=== PATIENT | female | born 2000 | race Caucasian/White ===

== ENCOUNTER 2018-01-29 18:00 | Inpatient (IN) | payer BC ==
[2018-01-29] MEDS ORDERED: DEXTROSE 5%-LACTATED RINGERS 1,000 ML IV SCH (18:15)
[2018-01-29] MEDS ORDERED: TUBERCULIN PPD 5 TU/0.1ML SYRINGE (IN PATIENT USE ONLY) ID ONE (18:45)
[2018-01-29 18:53] VITALS: BMI 27.4
[2018-01-29 19:46] LABS: BASO % 0.3 % (0-2.0); EOS % 0.5 % (0-4.5); HEMATOCRIT 36.3 % (32.4-45.2); HEMOGLOBIN 12.5 GM/dL (10.7-15.3); LYMPH % 20.6 % (8-40); MCHC 34.4 g/dl (32.0-36.0); MEAN CELL VOLUME 90.1 fl (80-96); MEAN PLT VOLUME 9.9 fl (7.5-11.1); MONO % 6.5 % (3.8-10.2); NEUT % 72.1 % (42.8-82.8); PLATELET COUNT 196 K/MM3 (134-434); RBC 4.03 M/mm3 (3.60-5.2); RDW 13.1 % (11.6-15.6); WHITE BLOOD COUNT 10.5 K/mm3 (4.0-10.0)
[2018-01-29 19:59] LABS: INR 0.88 (0.82-1.09)
[2018-01-29 20:01] LABS: ACTIVATED PTT 26.2 SECONDS (26.9-34.4)
[2018-01-29 20:16] LABS: ANION GAP 7 (8-16); BLOOD UREA NITROGEN 13 mg/dL (7-18); CALCIUM 8.9 mg/dL (8.5-10.1); CHLORIDE 107 mmol/L (98-107); CO2 25 mmol/L (21-32); CREATININE 0.5 mg/dL (0.55-1.02); GLUCOSE,RANDOM 95 mg/dL (74-106); POTASSIUM 4.2 mmol/L (3.5-5.1); SODIUM 139 mmol/L (136-145)
[2018-01-29] MEDS ORDERED: PROMETHAZINE HCL 25 MG/1 ML VIAL ONE (21:59)
[2018-01-29] MEDS ORDERED: BUTORPHANOL TARTRATE 1 MG/ML VIAL ONE ×2 (21:59)
--- NOTE | 2018-01-29 22:02 | HP ---
Past Medical History - Primary Care Physician PCP:: Pascual Singleton - Admission Chief Complaint: 37.6 weeks, PROM History of Present Illness: 17 yo f g 1 p0 edc by sono 02/13/18 c/o rom since 5 pm tody, clear, no pain, no fever , no bleeding, cx 2 cm 80 vx -2 mr, clear , nitrazine positive, fhr cat 1 , irregular mild contraction History Source: Patient Limitations to Obtaining History: No Limitations - Past Medical History DOULA: Yes: Syncope (ct scan negative) Renal/: Yes: UTI (txed during ) ...: 1 ...Para: 0 ...LMP: 05/11/17 ... Weeks Gestation by Dates: 37.4 ...EDC by Dates: 02/15/18 ...EDC by Sono: 02/13/18 Heme/Onc: Yes: Anemia Psych: Yes: Anxiety, Depression - Past Surgical History Hx Myomectomy: No Hx Transabdominal Cerclage: No - Smoking History Smoking history: Former smoker Have you smoked in the past 12 months: Yes Aproximately how many cigarettes per day: 3 If you are a former smoker, when did you quit?: Before - Alcohol/Substance Use Hx Alcohol Use: No Home Medications - Allergies Allergies/Adverse Reactions: Allergies Allergy/AdvReac Type Severity Reaction Status Date / Time No Known Allergies Allergy Verified 01/05/18 21:29 - Home Medications Home Medications: Ambulatory Orders Ferrous Sulfate 1 tab PO TID 11/27/17 Vit Calc,Iron,Folic [ Vitamins] 1 each PO DAILY 11/27/17 Ascorbic Acid [Vitamin C -] 250 mg PO DAILY 01/05/18 Cholecalciferol (Vitamin D3) [Vitamin D3 -] 400 unit PO DAILY 01/05/18 Review of Systems - Review of Systems Constitutional: reports: No Symptoms Eyes: reports: No Symptoms HENT: reports: No Symptoms Neck: reports: No Symptoms Cardiovascular: reports: No Symptoms Respiratory: reports: No Symptoms Gastrointestinal: reports: No Symptoms Genitourinary: reports: No Symptoms Breasts: reports: No Symptoms Reported Musculoskeletal: reports: No Symptoms Integumentary: reports: No Symptoms Neurological: reports: No Symptoms Endocrine: reports: No Symptoms Hematology/Lymphatic: reports: No Symptoms Psychiatric: reports: No Symptoms Physical Exam - Maternity Vital Signs: Vital Signs Temperature 98.2 F 01/29/18 19:46 Pulse Rate 86 01/29/18 21:00 Respiratory Rate 20 01/29/18 21:00 Blood Pressure 145/73 01/29/18 21:00 O2 Sat by Pulse Oximetry (%) Constitutional: Yes: Well Nourished, No Distress, Calm Eyes: Yes: WNL, Conjunctiva Clear, EOM Intact HENT: Yes: WNL, Atraumatic, Normocephalic Neck: Yes: WNL, Supple, Trachea Midline Cardiovascular: Yes: WNL, Regular Rate and Rhythm Breast(s): Yes: WNL - Abdominal Exam/OB Fundal Height: 40 Number of Fetuses: Single Presentation: Vertex Contractions: Yes Regularity: Irregular Monitor Mode: External Heart Rate Location: [facility] Category: I Accelerations: Uniform Decelerations: None - Vaginal Exam/OB Vaginal Bleediing: No Speculum Exam: Yes Dilatation (cm): 3 Effacement (%): 80 Amniotic Membrane Status: Ruptured Amniotic Fluid: Yes: Clear Presentation: Vertex/Position Station: -2 - Physical Exam Musculoskeletal: Yes: WNL Extremities: Yes: WNL Edema: Yes Edema: LLE: Trace, RLE: Trace Deep Tendon Reflex Grade: Normal +2 ...Motor Strength: WNL Psychiatric: Yes: WNL - Labs Lab Results: CBC, BMP 01/29/18 18:45 01/29/18 18:45 Hemorrhage Risk Assessment - Risk Factors Medium Risk Factors: Yes: None High Risk Factors: Yes: None Risk Score: 1 Risk Level: Medium Risk Problem List - Problems (1) with 37 weeks completed gestation Code(s): Z3A.37 - 37 WEEKS GESTATION OF (2) Premature rupture of membranes Code(s): O42.90 - ANGEL ROM, 7TH0 BETW RUPT & ONST LABR, UNSP WEEKS OF GEST Qualifiers: PROM onset of labor timing: onset of labor within 24 hours of rupture (3) Anxiety Code(s): F41.9 - ANXIETY DISORDER, UNSPECIFIED Assessment/Plan admit, GBS negative , heart monitoring , pain management , if contraction not regular may benefit from low dose pitocin
[2018-01-29] MEDS ORDERED: BUTORPHANOL TARTRATE 1 MG/ML VIAL IVPUSH ONE (22:15)
[2018-01-29] MEDS ORDERED: PROMETHAZINE HCL 25 MG/1 ML VIAL IVPUSH ONE (22:15)
[2018-01-30] MEDS ORDERED: OXYTOCIN 30 UNITS in 0.9% NS 30 UNIT/500 ML INFUS.BAG IVPB SCH (01:30)
[2018-01-30] MEDS ORDERED: OXYTOCIN 10 UNITS/ML VIAL ONE (01:42)
[2018-01-30] MEDS ORDERED: OXYTOCIN 20 UNITS in 0.9% NS 20 UNIT/1,000 ML INFUS.BAG IV ONE ×2 (01:43→05:54)
[2018-01-30] MEDS ORDERED: FENTANYL/BUPIVACAINE/NS/PF - PCEA - 50 ML DISP.SYRIN EP ONE (02:14)
[2018-01-30] MEDS ORDERED: NALOXONE HCL 0.4 MG/ML VIAL IVPUSH PRN (02:20)
[2018-01-30] MEDS ORDERED: FENTANYL/BUPIVACAINE/NS/PF - PCEA - 50 ML DISP.SYRIN EP SCH (02:30)
[2018-01-30] MEDS ORDERED: ELECTROLYTE-148 SOLN 1,000 ML IV SCH (02:30)
[2018-01-30] MEDS ORDERED: LIDOCAINE HCL 1% PRESERVATIVE FREE - 30ML VIAL ONE (06:17)
[2018-01-30] MEDS ORDERED: ACETAMINOPHEN 325 MG TABLET (FP) ONE (06:33)
[2018-01-30] MEDS ORDERED: WITCH HAZEL 50% (TUCKS) 40 PAD/JAR PAD TP PRN (06:35)
[2018-01-30] MEDS ORDERED: BISACODYL 10 MG SUPP.RECT RC PRN (06:35)
[2018-01-30] MEDS ORDERED: METHYLERGONOVINE MALEATE 0.2 MG/1 ML AMP IM PRN (06:35)
[2018-01-30] MEDS ORDERED: BENZOCAINE 28 GM HEMORRHOIDAL OINTMENT TP PRN (06:35)
[2018-01-30] MEDS ORDERED: BENZOCAINE 20% 57 GM BOTTLE TP PRN (06:35)
--- NOTE | 2018-01-30 06:35 | PN ---
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
[2018-01-30] MEDS ORDERED: D5W-LR W/ 20 UNITS OXYTOCIN 20 UNIT/1,000 ML INFUS.BAG IV SCH (06:45)
[2018-01-30] MEDS: FERROUS SO4 325 MG TABLET (FP) PO SCH ×2 (08:20→16:32)
[2018-01-30] MEDS ORDERED: TUBERCULIN PPD 5 TU/0.1ML SYRINGE (IN PATIENT USE ONLY) ID ONE (09:00)
[2018-01-30] MEDS: PRENATAL VITAMINS W/ FOLIC ACID TABLET (FP) PO SCH (09:48)
[2018-01-30] MEDS ORDERED: IBUPROFEN 600 MG TABLET (FP) PO ONE (09:55)
[2018-01-30] MEDS: IBUPROFEN 600 MG TABLET (FP) PO PRN ×2 (09:55→17:01)
[2018-01-31] MEDS: IBUPROFEN 600 MG TABLET (FP) PO PRN ×4 (00:16→21:32)
[2018-01-31] MEDS: ACETAMINOPHEN 325 MG TABLET (FP) PO PRN ×4 (00:17→21:32)
[2018-01-31 08:16] LABS: BASO % 0.4 % (0-2.0); EOS % 0.9 % (0-4.5); HEMATOCRIT 34.9 % (32.4-45.2); HEMOGLOBIN 11.7 GM/dL (10.7-15.3); LYMPH % 32.1 % (8-40); MCH 30.6 pg (25.7-33.7); MCHC 33.4 g/dl (32.0-36.0); MEAN CELL VOLUME 91.4 fl (80-96); MEAN PLT VOLUME 9.4 fl (7.5-11.1); NEUT % 58.6 % (42.8-82.8); PLATELET COUNT 149 K/MM3 (134-434); RBC 3.82 M/mm3 (3.60-5.2); RDW 13.5 % (11.6-15.6); WHITE BLOOD COUNT 11.5 K/mm3 (4.0-10.0)
[2018-01-31] MEDS: FERROUS SO4 325 MG TABLET (FP) PO SCH ×2 (08:26→17:04)
[2018-01-31] MEDS: PRENATAL VITAMINS W/ FOLIC ACID TABLET (FP) PO SCH (09:28)
--- NOTE | 2018-01-31 09:44 | PN ---
Post Progress Note - Subjective Subjective: Patient without acute complaints. Reports tolerating oral intake without nausea or vomiting. Ambulating without dizziness. Denies fevers or chills. Pain well controlled with oral pain medication. without difficulty. Passing flatus. Post Day: 1 Type of Delivery: Vital Signs: Vital Signs Temperature 97.8 F 01/31/18 06:00 Pulse Rate 87 01/31/18 06:00 Respiratory Rate 20 01/31/18 06:00 Blood Pressure 127/50 01/31/18 06:00 O2 Sat by Pulse Oximetry (%) 100 01/30/18 08:00 Uterus: Yes: Fundus Firm, Fundus below umbilicus Abdomen/GI: Yes: Abdomen soft, Tender, Passing flatus, Tolerating PO. No: Abdominal Distention Lochia: Yes: Serosa Lochia, amount: Moderate Extremities: Yes: Calves non-tender. No: Edema Activity: Ambulating - Labs Labs: CBC WBC 11.5 K/mm3 (4.0-10.0) H 01/31/18 07:22 RBC 3.82 M/mm3 (3.60-5.2) 01/31/18 07:22 Hgb 11.7 GM/dL (10.7-15.3) 01/31/18 07:22 Hct 34.9 % (32.4-45.2) 01/31/18 07:22 MCV 91.4 fl (80-96) 01/31/18 07:22 MCH 30.6 pg (25.7-33.7) 01/31/18 07:22 MCHC 33.4 g/dl (32.0-36.0) 01/31/18 07:22 RDW 13.5 % (11.6-15.6) 01/31/18 07:22 Plt Count 149 K/MM3 (134-434) D 01/31/18 07:22 MPV 9.4 fl (7.5-11.1) 01/31/18 07:22 Neutrophils % 58.6 % (42.8-82.8) 01/31/18 07:22 Lymphocytes % 32.1 % (8-40) D 01/31/18 07:22 Monocytes % 8.0 % (3.8-10.2) 01/31/18 07:22 Eosinophils % 0.9 % (0-4.5) 01/31/18 07:22 Basophils % 0.4 % (0-2.0) 01/31/18 07:22 Assessment/Plan 17 yo PPD #1 s/p , afebrile, vital signs stable, doing well 1. Continue routine care. 2. AM CBC stable 3. Rh positive status, no rhogam indicated. 4. Encourage ambulation 5. Continue oral pain medication 6. Anticipate discharge home day #2
[2018-01-31] MEDS ORDERED: SENNOSIDES/DOCUSATE COMBO (SENNA PLUS) TABLET (UD) PO PRN (22:00)
--- NOTE | 2018-02-01 00:34 | PN ---
Post Progress Note - Subjective Subjective: Patient without acute complaints. Reports tolerating oral intake without nausea or vomiting. Ambulating without dizziness. Denies fevers or chills. Pain well controlled with oral pain medication. without difficulty. Passing flatus. Post Day: 2 Type of Delivery: Vital Signs: Vital Signs Temperature 98.5 F 01/31/18 22:00 Pulse Rate 96 H 01/31/18 22:00 Respiratory Rate 20 01/31/18 22:00 Blood Pressure 136/75 01/31/18 22:00 O2 Sat by Pulse Oximetry (%) 100 01/30/18 08:00 Breast Exam: Yes: Soft Uterus: Yes: Fundus Firm, Fundus below umbilicus Abdomen/GI: Yes: Abdomen soft, Passing flatus, Tolerating PO. No: Abdominal Distention, Tender Lochia: Yes: Serosa Lochia, amount: Small Extremities: Yes: Calves non-tender, Edema (trace) Activity: Ambulating - Labs Labs: CBC WBC 11.5 K/mm3 (4.0-10.0) H 01/31/18 07:22 RBC 3.82 M/mm3 (3.60-5.2) 01/31/18 07:22 Hgb 11.7 GM/dL (10.7-15.3) 01/31/18 07:22 Hct 34.9 % (32.4-45.2) 01/31/18 07:22 MCV 91.4 fl (80-96) 01/31/18 07:22 MCH 30.6 pg (25.7-33.7) 01/31/18 07:22 MCHC 33.4 g/dl (32.0-36.0) 01/31/18 07:22 RDW 13.5 % (11.6-15.6) 01/31/18 07:22 Plt Count 149 K/MM3 (134-434) D 01/31/18 07:22 MPV 9.4 fl (7.5-11.1) 01/31/18 07:22 Neutrophils % 58.6 % (42.8-82.8) 01/31/18 07:22 Lymphocytes % 32.1 % (8-40) D 01/31/18 07:22 Monocytes % 8.0 % (3.8-10.2) 01/31/18 07:22 Eosinophils % 0.9 % (0-4.5) 01/31/18 07:22 Basophils % 0.4 % (0-2.0) 01/31/18 07:22 Assessment/Plan 17 yo PPD #2 s/p , afebrile, vital signs stable, doing well 1. Patient stable for discharge home today. 2. Patient encouraged to contact MD for: - Severe pain not controlled by oral pain medication - Fevers or chills - Nausea or vomiting, intolerance of oral intake 3. Patient to follow up in office in 4-6 weeks for visit
[2018-02-01] MEDS: FERROUS SO4 325 MG TABLET (FP) PO SCH (08:04)
[2018-02-01] MEDS: PRENATAL VITAMINS W/ FOLIC ACID TABLET (FP) PO SCH (09:11)
[2018-02-01 09:27] VITALS: BP 120/84; PULSE 88; TEMP 98.3
[2018-02-01] MEDS: IBUPROFEN 600 MG TABLET (FP) PO PRN (09:44)
[2018-02-01] MEDS: ACETAMINOPHEN 325 MG TABLET (FP) PO PRN (09:45)
== END 2018-02-01 11:05 | disposition home or self-care (01) | DRG 775 ==
LOC: JLDR 18:00 → J3W 01-30 09:52
PROVIDERS: ADMIT Obstetrics & Gynecology; ATTEND Obstetrics & Gynecology
PROC: 10E0XZZ Delivery of Products of Conception, External Approach (ICD-10-PCS; principal; 2018-01-30)
DX: O42.92 Full-term premature rupture of membranes, unspecified as to length of time between rupture and onset of labor (principal); O99.344 Other mental disorders complicating childbirth; F41.9 Anxiety disorder, unspecified; Z3A.37 37 weeks gestation of pregnancy; Z37.0 Single live birth
CPT/HCPCS: 36415; 59409; 80048; 85025; 85610; 85730; 86593; 86850; 86900; 86901